=== PATIENT | female | born 1975 | race Caucasian/White ===

== ENCOUNTER 2017-08-18 15:40 | Emergency (ER) | payer BC ==
[2017-08-18 15:55] VITALS: BP 137/87
--- NOTE | 2017-08-18 16:18 | UC ---
Abdominal Pain Female HPI - HPI Summary HPI Summary: This 42-year-old lady comes to the urgent care tonight with acute abdominal pain she is unable to sit down comfortably she standing in room rocking back and forth holding onto abdomen patient denies nausea or vomiting patient reports normal BM this morning abdomen is diffusely tender worse in the upper quadrants - History of Current Complaint Chief Complaint: UCAbdominalPain Stated Complaint: ABD PAIN Time Seen by Provider: 08/18/17 16:00 Hx Obtained From: Patient Hx Last Menstrual Period: 2 weeks ago ?: No Onset/Duration: Sudden Onset Timing: Constant Severity Initially: Severe Severity Currently: Severe Pain Intensity: 8 Pain Scale Used: 0-10 Numeric Location: Diffuse Radiates: No Character: Aching, Cramping Aggravating Factor(s): Nothing Alleviating Factor(s): Nothing Associated Signs and Symptoms: Positive: Negative Allergies/Adverse Reactions: Allergies Allergy/AdvReac Type Severity Reaction Status Date / Time vancomycin Allergy Intermediate hives and Verified 08/18/17 15:55 SOB PMH/Surg Hx/FS Hx/Imm Hx Previously Healthy: No Cancer History: Breast Cancer - Surgical History Surgical History: Yes Surgery Procedure, Year, and Place: Knee surgery x2, partial mastectomy and lumpectomy 2012 - Family History Known Family History: Positive: None - Social History Occupation: Employed Full-time Lives: With Family Alcohol Use: None Substance Use Type: None Smoking Status (MU): Never Smoked Tobacco Review of Systems Constitutional: Negative Skin: Negative Eyes: Negative ENT: Negative Respiratory: Negative Cardiovascular: Negative Gastrointestinal: Abdominal Pain Genitourinary: Negative Motor: Negative Neurovascular: Negative Musculoskeletal: Negative Neurological: Negative Psychological: Negative Is Patient Immunocompromised?: No All Other Systems Reviewed And Are Negative: Yes Physical Exam Triage Information Reviewed: Yes Appearance: Ill-Appearing, Pain Distress, Obese Vital Signs: Initial Vital Signs Temp 98.1 F 08/18/17 15:47 Pulse 97 08/18/17 15:47 Resp 16 08/18/17 15:47 BP 137/87 08/18/17 15:47 Pulse Ox 97 08/18/17 15:47 Vital Signs Reviewed: Yes Eye Exam: Normal Eyes: Positive: Conjunctiva Clear ENT Exam: Normal ENT: Positive: Normal ENT inspection, Hearing grossly normal, Pharynx normal, TMs normal. Negative: Nasal congestion, Nasal drainage, Tonsillar swelling, Tonsillar exudate, Hoarse voice Dental Exam: Normal Neck exam: Normal Neck: Positive: Supple, Nontender, No Lymphadenopathy Respiratory Exam: Normal Respiratory: Positive: Chest non-tender, Lungs clear, Normal breath sounds, No respiratory distress, No accessory muscle use Cardiovascular Exam: Normal Cardiovascular: Positive: RRR, No Murmur, Pulses Normal, Brisk Capillary Refill Abdominal Exam: Normal Abdomen Description: Positive: Distended, Guarding, Other: - Diffuse discomfort. Negative: CVA Tenderness (R), CVA Tenderness (L), Peritoneal Signs , Splenomegaly Bowel Sounds: Positive: Present Musculoskeletal Exam: Normal Musculoskeletal: Positive: Strength Intact, ROM Intact, No Edema Neurological Exam: Normal Neurological: Positive: Alert, Muscle Tone Normal Psychological Exam: Normal Skin Exam: Normal Diagnostics - Laboratory Diagnostic Studies Completed/Ordered: Trace protein and urine UA otherwise within normal limits, urine test negative Abd Pain Female Course/Dx - Course Course Of Treatment: Patient is being discharged to follow-up at the emergency department patient's preference is to go to [facility] patient understands to remained nothing by mouth will respond directly to Hospital - Differential Dx/Diagnosis Provider Diagnoses: Acute abdominal pain Discharge - Sign-Out/Discharge Documenting (check all that apply): Discharge - Discharge Plan Condition: Stable Disposition: HOME Discharge Disposition Comment: to [facility] by private car Patient Education Materials: Acute Abdominal Pain (ED) Referrals: Solange Morales [Primary Care Provider] - Additional Instructions: Zofia your urine doesn't show the cause of your abdominal pain today, I have no further testing that I can do here at the urgent care to diagnosis properly for you. My best recommendation is free to go to the emergency department for further evaluation nothing to eat or drink until you're seen by the emergency room doctor and we can get a diagnosis for you - Billing Disposition and Condition Condition: STABLE Disposition: HOME
== END 2017-08-18 16:25 | disposition home or self-care (01) ==
LOC: UCEAST 15:40
DX: R10.10 Upper abdominal pain, unspecified (principal); Z32.02 Encounter for pregnancy test, result negative; Z88.1 Allergy status to other antibiotic agents; Z85.3 Personal history of malignant neoplasm of breast
CPT/HCPCS: 81003; 84702; 99202; G0463